=== PATIENT | male | born 1980 | race Caucasian/White ===

== ENCOUNTER 2017-07-21 08:12 | Emergency (ER) | payer OTHER, BC ==
[~2017-07-21] VITALS: Ht 175.3 cm; Wt 78.5 kg
[2017-07-21 08:15] VITALS: TEMP 36.5; Ht 175.3 cm; Wt 78.5 kg
[2017-07-21] MEDS ORDERED: ASPI81TA28 PO (08:34)
[2017-07-21] MEDS ORDERED: ZNTT/150 PO (08:34)
[2017-07-21] MEDS ORDERED: LISI-725 PO (08:34)
[2017-07-21] MEDS ORDERED: KETOROLAC TROMETHAMINE 60 MG/2 ML VIAL IM STA (08:37)
[2017-07-21] MEDS ORDERED: OXYC1TAB3 PO (08:43)
--- NOTE | 2017-07-21 08:45 | EMERGENCY ROOM VISIT NOTE ---
ED Visit Note First contact with patient: 08:23 CHIEF COMPLAINT: Right Ankle pain HISTORY OF PRESENT ILLNESS: This 37-year-old male patient presents to the emergency department approximately one hour after sustaining an injury to the right ankle and foot with a twisting, inversion motion. 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 He attempted to step onto what he thought was pavement, but ended up being in the snow, then rolled his ankle 90. He was initially able to bear weight, however the pain significantly worsens and he was no longer able to weight-bear. The patient complains of pain along the outside of the ankle. The patient denies pain of the foot. The patient rates the pain as sharp and 9/10. The patient is no longer able to bear weight on the foot. Constant pain, worse with movement, weight bearing, and the dependent position. No knee pain, the patient is able to move their toes. No numbness or weakness of the foot, no laceration. The patient has not had a previous fracture to this ankle. The patient has taken nothing for the pain. The patient denies any other injury. REVIEW OF SYSTEMS: A 6 system review of systems was completed with positives and pertinent negatives listed in the HPI. ALLERGIES: None MEDICATIONS: Zyrtec D, Lisinopril, HCTZ, aspirin PMH: Hypertension SOCIAL HISTORY: The patient lives locally with family. He denies drug, alcohol , tobacco use. PHYSICAL EXAM: Vital Signs: Reviewed Nurse's notes, vital signs stable. GENERAL : This is a 37-year-old male, no acute distress, but appears in pain, well- developed, well-nourished. MENTAL STATUS: Alert, oriented to person place and time, and cooperative. MUSCULOSKELETAL: The right ankle is swollen and tender over the lateral malleolus, but the skin is intact and there is no ligamentous instability. There is no fifth metatarsal tenderness. There is no tenderness over the rest of the foot. There is no calf or tibia/fibular tenderness. There is no visual deformity. The foot and toes are warm and well-perfused. Dorsalis pedis pulse 2+. Sensation to pain and light touch is intact. Capillary refill less than 2 seconds. RADIOLOGY: X-Ray Right Ankle: R ANKLE MIN 3 VIEWS ROUTINE HISTORY: 37 years-old Male Right ankle injury acute right ankle pain status post trauma COMPARISON: None available TECHNIQUE: 3 views of the right ankle FINDINGS: There is an acute obliquely oriented fracture of the distal fibula extending to level of the tibial plafond and into the distal tibiofibular syndesmosis. 2 mm lateral displacement with 4 mm posterior displacement. Moderate soft tissue swelling with small joint effusion. Distal tibia appears intact. No osteochondral defect. IMPRESSION: 1. Acute minimally displaced obliquely oriented fracture of the distal fibula extends to the level of the tibial plafond into the distal tibiofibular syndesmosis. 2. Moderate soft tissue swelling with small joint effusion. EMERGENCY DEPARTMENT COURSE: I examined the patient. X-rays of the right ankle were reviewed by myself and read by radiology and reveal acute minimally displaced obliquely oriented fracture of the distal fibula. An Ortho-Glass stirrup splint was applied to the ankle under my direction and the position was satisfactory. Neurovascular status was rechecked and intact. The patient was instructed on the use of crutches. The patient was discharged home in good condition. I attest that I have personally reviewed the patient's current medication list. Patient was found to have normal blood pressure on screening and does not require follow-up. DIFFERENTIAL DIAGNOSIS: Fracture, sprain, strain, contusion, avulsion fracture, malignancy, and others DIAGNOSIS: Fracture of the distal end of the right fibula Current/Historical Medications Scheduled Aspirin (Aspirin Ec), 81 MG PO DAILY Lisinopril (Zestril), 20 MG PO DAILY Scheduled PRN Oxycodone Ir (Roxicodone Ir), 1-2 TAB PO Q4H PRN for Pain Ranitidine (Zantac), 150 MG PO DAILY PRN for ACID REFLUX Allergies Coded Allergies: No Known Allergies (Unverified , 07/21/17) Vital Signs Date Time Temp Pulse Resp B/P (MAP) Pulse Ox O2 Delivery O2 Flow Rate FiO2 07/21/17 09:17 77 18 115/73 98 07/21/17 08:15 36.5 89 20 117/79 99 Room Air Medications Administered Medications (Trade) Dose Ordered Sig/Jairo Route Start Time Stop Time Status Last Admin Dose Admin Ketorolac Tromethamine (Toradol Inj) 60 mg NOW STAT IM 07/21/17 08:37 07/21/17 08:39 DC 07/21/17 08:55 60 MG Departure Information Impression Primary Impression: Fracture of distal end of right fibula Dispostion Home / Self-Care Condition GOOD Prescriptions Oxycodone Ir (Roxicodone Ir) 5 Mg Tab 1-2 TAB PO Q4H Y for Pain, #24 TAB For Initial Treatment Prov: Dana Wing PA-C 07/21/17 Referrals Marylu Yanez DO (PCP) Foreign Carrasco M.D. Patient Instructions ED Fx Ankle Lateral Malleolus, My [facility] Additional Instructions ORTHOPEDIC INSTRUCTIONS: Oxycodone (OxyIR) 5mg: Take 1-2 pills every four hours as needed for breakthrough pain. Avoid alcohol, operating machinery or dangerous equipment, working on ladders or roofs, DRIVING, or situations where being under the influence may be dangerous. It is recommended to use an [id number] stool softener such as Colace, 100mg twice daily while taking this medication to avoid constipation. Ibuprofen(Motrin, Advil) may be used for fever or pain. Use 600mg every six hours as needed. Take with food. Avoid using more than 2400mg in a 24 hour period. Do not use 2400mg per day for more than three consecutive days without physician direction. Prolonged inappropriate use can lead to stomach upset or ulcers. (AND/OR) Acetaminophen(Tylenol) may be used for fever or pain. Use 1000mg every six hours as needed. Avoid using more than 3000mg in a 24 hour period. Ice compresses for 20 minutes at a time four times daily for 2-3 days. Use the crutches as instructed. Rest and elevate your injury. Do not get the splint wet. If your splint feels excessively tight, you have worsening pain, develop numbness or tingling, or your digits appear blue, loosen the daren wrap. Then reapply the daren wrap gently without removing the splint. If your symptoms are not quickly relieved return to the ER for re- evaluation. Return to the ER immediately for any numbness, tingling, severe pain, extreme swelling in the extremity or as needed. Call [facility], [phone], today or tomorrow to arrange follow up for your injury. You may wish to contact your Worker's Compensation to determine appropriate provider prior to scheduling the follow-up. Follow-up with your primary care physician in 2 to 3 days for a recheck of your current condition. Problem Qualifiers Primary Impression: Fracture of distal end of right fibula Encounter type: initial encounter Fracture type: closed Fracture morphology : unspecified fracture morphology Qualified Codes: S82.831A - Other fracture of upper and lower end of right fibula, initial encounter for closed fracture
--- NOTE | 2017-07-21 08:48 | DIAGNOSTIC IMAGING REPORT ---
R ANKLE MIN 3 VIEWS ROUTINE HISTORY: 37 years-old Male Right ankle injury acute right ankle pain status post trauma COMPARISON: None available TECHNIQUE: 3 views of the right ankle FINDINGS: There is an acute obliquely oriented fracture of the distal fibula extending to level of the tibial plafond and into the distal tibiofibular syndesmosis. 2 mm lateral displacement with 4 mm posterior displacement. Moderate soft tissue swelling with small joint effusion. Distal tibia appears intact. No osteochondral defect. IMPRESSION: 1. Acute minimally displaced obliquely oriented fracture of the distal fibula extends to the level of the tibial plafond into the distal tibiofibular syndesmosis. 2. Moderate soft tissue swelling with small joint effusion. The above report was generated using voice recognition software. It may contain grammatical, syntax or spelling errors. Electronically signed by: Tanner Lea M.D. 07/21/2017 8:47 AM Dictated Date/Time: 07/21/2017 8:45 AM
[2017-07-21 09:17] VITALS: BP 115/73; PULSE 77; O2SAT 98
== END 2017-07-21 09:18 | disposition home or self-care (01) ==
LOC: C.EDB 08:15 → C.EDA 09:18
DX: S82.431A Displaced oblique fracture of shaft of right fibula, initial encounter for closed fracture (principal); X50.0XXA Overexertion from strenuous movement or load, initial encounter; Y93.89 Activity, other specified; Y92.89 Other specified places as the place of occurrence of the external cause; Y99.0 Civilian activity done for income or pay; I10 Essential (primary) hypertension; Z79.82 Long term (current) use of aspirin; Z79.899 Other long term (current) drug therapy